=== PATIENT | male | born 1985 | race Two or more races ===

== ENCOUNTER 2017-08-21 06:15 | Emergency (ER) | payer SELFPAY ==
[~2017-08-21] VITALS: Ht 175.3 cm; Wt 62.1 kg
[2017-08-21 07:02] LABS: Urine Bilirubin Negative (Negative); Urine Blood Negative /uL (Negative); Urine Color Yellow (Yellow); Urine Glucose Normal (Normal); Urine Ketone 1+ (Negative); Urine Nitrite Negative (Negative); Urine RBC <1 /hpf (0 - 3); Urine Urobilinogen Normal (Negative); Urine pH 6.5 (5.0-8.0)
[2017-08-21 07:04] LABS: Basophils # (auto) 0 uL; Basophils % (auto) 0.3 % (0.0-2.0); Eosinophils # (auto) 0 uL; Eosinophils % (auto) 0.3 % (0.0-7.0); Hematocrit 46.8 % (41.0-53.0); Hemoglobin 16.1 g/dL (13.5-17.5); Lymphocytes # (auto) 1.2 uL; Mean Corpuscular Hgb Conc. 34.4 g/dL (32.0-36.0); Mean Platelet Volume 8.2 fL (6.9-10.8); Monocytes # (auto) 1.1 uL; Monocytes % (auto) 13.6 % (0.0-12.0); Neutrophils # (auto) 5.7 uL; Neutrophils % (auto) 70.8 % (37.0-80.0); Platelet Count (auto) 202 10^3/uL (140-450); Red Cell Distribution Width 13.4 % (11.8-14.3)
[2017-08-21 07:25] LABS: Albumin 4.1 g/dL (3.4-5.0); BUN/Creatinine Ratio 10.9; Bilirubin, Total 0.9 mg/dL (0.2-1.0); Potassium 3.5 mmol/L (3.5-5.1)
[2017-08-21 07:44] VITALS: BP 139/83
[2017-08-21] MEDS ORDERED: DONNATAL 5ml ORAL Elix (BELLADONNA ALK-PHENOBARB) PO ONE (08:15)
[2017-08-21] MEDS ORDERED: OMEPRAZOLE 20MG/10ML ORAL SUSP PO ONE (08:15)
[2017-08-21] MEDS ORDERED: ONDANSETRON HCL 4 MG/2 ML VIAL IM ONE (08:15)
[2017-08-21] MEDS ORDERED: LIDOCAINE VISCOUS 2% 15ML UD PO ONE (08:15)
[2017-08-21] MEDS ORDERED: ALUM & MAG HYDROX-SIMETH LIQ(MAALOX) 30 ML PO ONE (08:15)
[2017-08-21] MEDS ORDERED: PANTOPRAZOLE 40 MG TAB PO ONE (08:30)
== END 2017-08-21 08:54 | disposition home or self-care (01) ==
LOC: ER 06:18
DX: K29.00 Acute gastritis without bleeding (principal); F12.10 Cannabis abuse, uncomplicated; F10.10 Alcohol abuse, uncomplicated
CPT/HCPCS: 36415; 80053; 81001; 82150; 83690; 85025; 96372; 99284; J2405

== ENCOUNTER → 2022-05-31 | Outpatient (CLI) | payer OTHER | END | disposition home or self-care (01) | LOC: LAB 14:07 | PROVIDERS: ATTEND Family Medicine | DX: Z77.21 Contact with and (suspected) exposure to potentially hazardous body fluids (principal) | CPT/HCPCS: 36415; 86703; 86706; 86803; 87340 ==

== ENCOUNTER → 2022-07-19 | Outpatient (CLI) | payer OTHER | END | disposition home or self-care (01) | LOC: LAB 12:00 | PROVIDERS: ATTEND Family Medicine | DX: Z77.21 Contact with and (suspected) exposure to potentially hazardous body fluids (principal) | CPT/HCPCS: 36415; 86703; 86803 ==